=== PATIENT | male | born 1975 | race Caucasian/White ===

== ENCOUNTER 2016-09-14 20:43 | Emergency (ER) | payer OTHER ==
[~2016-09-14] VITALS: Ht 160 cm; Wt 61.9 kg
[2016-09-14 20:48] VITALS: BP 108/61
[2016-09-14] MEDS ORDERED: MOTRIN800 MG PO (21:55)
== END 2016-09-14 22:12 | disposition home or self-care (01) ==
LOC: EME 20:43 → RME 21:25
PROC: 09C1XZZ Extirpation of Matter from Left External Ear, External Approach (ICD-10-PCS; principal; 2016-09-14)
DX: H61.22 Impacted cerumen, left ear (principal); H60.93 Unspecified otitis externa, bilateral
CPT/HCPCS: 99281; 99284

== ENCOUNTER 2016-09-22 16:58 | Outpatient (CLI) | payer OTHER ==
[~2016-09-22] VITALS: Ht 162.6 cm; Wt 60.3 kg
[~2016-09-22 16:58] MED LIST: MOTRIN800 MG PO
[2016-09-22 20:07] VITALS: BP 122/69
[2016-09-22] MEDS ORDERED: OMEPRAZOLE40 M1 PO (21:08)
== END 2016-09-22 22:00 | disposition home or self-care (01) ==
LOC: AMB 16:58 → EME 16:58 → SDC 20:08 → EDSTATUS 20:15 → AMB 22:00 → SDC 22:00
PROC: 0DC38ZZ Extirpation of Matter from Lower Esophagus, Via Natural or Artificial Opening Endoscopic (ICD-10-PCS; principal; 2016-09-22)
DX: T18.128A Food in esophagus causing other injury, initial encounter (principal); K20.9 Esophagitis, unspecified; K08.409 Partial loss of teeth, unspecified cause, unspecified class; F99 Mental disorder, not otherwise specified
CPT/HCPCS: 99281; 99285